=== PATIENT | male | born 1975 | race Caucasian/White ===

== ENCOUNTER 2019-06-01 08:01 | Emergency (ER) | payer OTHER ==
[2019-06-01 08:28] VITALS: BP 116/80
[2019-06-01] MEDS ORDERED: Fluorescein Sodium TOPICAL* 1 MG TEST STRIP OPHTHALMIC ONE (08:59)
--- NOTE | 2019-06-01 09:11 | UC ---
Eye Complaint HPI - HPI Summary HPI Summary: 44 yo male with the onset of right eye irritation last PM Works 3rd shift worsened now with photophobia and FB sensaton under upper lid - History of Current Complaint Chief Complaint: UCEye Stated Complaint: RT EYE COMPLAINT Time Seen by Provider: 06/01/19 08:18 Hx Obtained From: Patient Onset/Duration: Sudden Onset Timing: Constant Severity Initially: Mild Severity Currently: Moderate Pain Intensity: 5 Pain Scale Used: 0-10 Numeric Location of Injury: Eye Lid (upper) Character: Foreign Body Sensation Aggravating Factor(s): Nothing Alleviating Factor(s): Darkness Associated Signs And Symptoms: Positive: Photophobia, Drainage (Clear) Eyes: 1 - tear drop shaped area of fluroscein staining - Risk Factors Penetrating Injury Risk Factor: Negative Globe Rupture Risk Factors: Negative Acute Glaucoma Risk Factors: Negative - Allergies/Home Medications Allergies/Adverse Reactions: Allergies Allergy/AdvReac Type Severity Reaction Status Date / Time No Known Allergies Allergy Verified 06/01/19 08:23 Home Medications: Home Medications Omeprazole 20 mg PO DAILY 06/01/19 [History Confirmed 06/01/19] traMADol TAB* [Ultram*] 1 tab PO Q8H 06/01/19 [History Confirmed 06/01/19] PMH/Surg Hx/FS Hx/Imm Hx Previously Healthy: Yes - Surgical History Surgical History: Yes Surgery Procedure, Year, and Place: right shoulder/clavicle 2005 - Family History Known Family History: Positive: Hypertension - Social History Alcohol Use: Occasionally Substance Use Type: None Smoking Status (MU): Former Smoker Type: Cigarettes Length of Time of Smoking/Using Tobacco: on and off smoker, quit 7-8 y/o When Did the Patient Quit Smoking/Using Tobacco: 2009 Review of Systems All Other Systems Reviewed And Are Negative: Yes Constitutional: Positive: Negative Skin: Positive: Negative Eyes: Positive: Drainage - tearing, Eye Redness, Photophobia ENT: Positive: Negative Respiratory: Positive: Negative Cardiovascular: Positive: Negative Gastrointestinal: Positive: Negative Genitourinary: Positive: Negative Motor: Positive: Negative Neurovascular: Positive: Negative Musculoskeletal: Positive: Negative Neurological: Positive: Negative Psychological: Positive: Negative Physical Exam Triage Information Reviewed: Yes Appearance: Well-Appearing, No Pain Distress, Well-Nourished Vital Signs: Initial Vital Signs Temp 97.9 F 06/01/19 08:24 Pulse 67 06/01/19 08:24 Resp 16 06/01/19 08:24 BP 116/80 06/01/19 08:24 Pulse Ox 100 06/01/19 08:24 Vital Signs Reviewed: Yes Eyes: Positive: Conjunctiva Inflamed - slight R, Other: - lid everted no FB noted...(+) flourescein staining defect ENT: Positive: Hearing grossly normal. Negative: Nasal congestion, Nasal drainage Dental Exam: Normal Neck: Positive: Supple, Nontender, No Lymphadenopathy Respiratory: Positive: Lungs clear, Normal breath sounds, No respiratory distress Cardiovascular: Positive: RRR, No Murmur Musculoskeletal: Positive: ROM Intact, No Edema Neurological: Positive: Alert Psychological Exam: Normal Skin Exam: Normal Eye Complaint Course/Dx - Course Course Of Treatment: Pt seen at [facility] - [place] I called there and set up a 10:30 sppt ? abrasion vs ulcer vs dendritic lesion area of uptake minute and needs further investigation with slit lamp - Differential Dx/Diagnosis Provider Diagnosis: Acute right eye pain Discharge ED - Sign-Out/Discharge Documenting (check all that apply): Patient Departure All imaging exams completed and their final reports reviewed: Yes - Discharge Plan Condition: Stable Disposition: HOME Referrals: Hunter Gregg PA [Primary Care Provider] - Additional Instructions: When I stained your eye with fluorescein I could see an area of uptake on your corneal I can not tell if it's from trauma or infection You have an appt at [facility] at 10:30 today - Billing Disposition and Condition Condition: STABLE Disposition: Home
[2019-06-01] MEDS ORDERED: Erythromycin OPTH OINT* APPLIC OINT RIGHT EYE ONE (09:22)
== END 2019-06-01 09:35 | disposition home or self-care (01) ==
LOC: UCCORT 08:01
DX: H57.11 Ocular pain, right eye (principal); H57.89 Other specified disorders of eye and adnexa; Z87.891 Personal history of nicotine dependence
CPT/HCPCS: 99212; A9270-GY; G0463